=== PATIENT | female | born 2000 | race Caucasian/White ===

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

== ENCOUNTER 2018-03-22 14:25 | Emergency (ER) | payer MEDICAID ==
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
[2018-03-22 15:30] LABS: ABSOLUTE BASOPHILS # (AUTO) 0.1 10^3/uL (0.0-0.2); ABSOLUTE EOSINOPHILS # (AUTO) 0.3 10^3/uL (0.0-0.6); ABSOLUTE LYMPHOCYTES (AUTO) 1.2 10^3/uL (0.5-4.7); ABSOLUTE MONOCYTES (AUTO) 0.5 10^3/uL (0.1-1.4); ABSOLUTE NEUT (AUTO) 4.2 10^3/uL (1.7-8.2); BASOPHILS % (AUTO) 0.9 % (0-2); EOSINOPHILS % (AUTO) 4.5 % (0-6); HEMOGLOBIN 12.9 g/dL (12.0-15.5); LYMPHOCYTES % (AUTO) 18.8 % (13-45); MEAN CORPUSCULAR HEMOGLOBIN 32.1 pg (27.0-33.4); MEAN CORPUSCULAR HGB CONC 34.8 g/dL (32.0-36.0); MEAN CORPUSCULAR VOLUME 92 fl (80-97); MONOCYTES % (AUTO) 7.7 % (3-13); PLATELET COUNT 220 10^3/uL (150-450); RED BLOOD COUNT 4.01 10^6/uL (3.72-5.28); RED CELL DISTRIBUTION WIDTH 12.2 % (11.5-14.0); SEGMENTED NEUTROPHILS % (AUTO) 68.1 % (42-78); TOTAL CELLS COUNTED % (AUTO) 100 %; WHITE BLOOD COUNT 6.2 10^3/uL (4.0-10.5)
[2018-03-22 15:50] LABS: ALANINE AMINOTRANSFERASE 16 U/L (5-35); ALBUMIN 4.7 g/dL (3.7-5.6); ALKALINE PHOSPHATASE 55 U/L (50-135); ANION GAP 11 (5-19); ASPARTATE AMINO TRANSFERASE 19 U/L (5-30); BILIRUBIN,DIRECT 0.4 mg/dL (0.0-0.4); BILIRUBIN,TOTAL 0.7 mg/dL (0.2-1.3); BLOOD UREA NITROGEN 8 mg/dL (7-20); CALCIUM 9.8 mg/dL (8.4-10.2); CARBON DIOXIDE 22 mmol/L (22-30); CHLORIDE 107 mmol/L (98-107); GLUCOSE 91 mg/dL (75-110); POTASSIUM 4.2 mmol/L (3.6-5.0); TOTAL PROTEIN 7.9 g/dL (6.3-8.2)
[2018-03-22 15:51] LABS: ACETAMINOPHEN < 10 ug/mL (10-30); ALCOHOL < 10 mg/dL (NONE DETECTED); SALICYLATE < 1.0 mg/dL (2.0-20.0)
[2018-03-22] MEDS ORDERED: LIDOCAINE 1% INJ-PF (10 MG/ML) 30 ML SDV INJ ONE (17:13)
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
[2018-03-22] MEDS ORDERED: OLANZAPINE INJ/PF 10 MG SDV IM ONE (17:19)
[2018-03-22] MEDS ORDERED: BENZTROPINE MESYLATE INJ 2 MG/2 ML AMPULE IM ONE (17:20)
--- NOTE | 2018-03-22 19:38 | EKG REPORT ---
SEVERITY:- NORMAL ECG - SINUS RHYTHM : Confirmed by: Claudia Cline MD 22-Mar-2018 19:37:06
[2018-03-22 22:15] LABS: APPEARANCE,URINE SLIGHTLY-CLOUDY; BILIRUBIN,URINE NEGATIVE (NEGATIVE); COLOR,URINE YELLOW; GLUCOSE, URINE NEGATIVE (NEGATIVE); KETONES,URINE NEGATIVE (NEGATIVE); LEUKOCYTE ESTERASE,URINE NEGATIVE (NEGATIVE); NITRITE,URINE NEGATIVE (NEGATIVE); PROTEIN,URINE NEGATIVE (NEGATIVE); URINE SPECIFIC GRAVITY 1.013; UROBILINOGEN,URINE NEGATIVE mg/dL (<2.0)
[2018-03-22 22:27] LABS: URINE AMPHETAMINES SCREEN NEGATIVE; URINE BARBITURATES SCREEN NEGATIVE; URINE BENZODIAZEPINES SCREEN UNCONFIRMED POSITIVE; URINE COCAINE SCREEN UNCONFIRMED POSITIVE; URINE MARIJUANA (THC) SCREEN NEGATIVE; URINE METHADONE SCREEN NEGATIVE; URINE PHENCYCLIDINE SCREEN NEGATIVE
[2018-03-23 07:45] VITALS: BP 119/60
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
== END 2018-03-23 10:30 | disposition home or self-care (01) ==
LOC: ER 14:25
DX: R45.851 Suicidal ideations (principal); F14.10 Cocaine abuse, uncomplicated; F11.10 Opioid abuse, uncomplicated; F43.25 Adjustment disorder with mixed disturbance of emotions and conduct; F32.9 Major depressive disorder, single episode, unspecified; S61.412A Laceration without foreign body of left hand, initial encounter; X78.9XXA Intentional self-harm by unspecified sharp object, initial encounter; F17.210 Nicotine dependence, cigarettes, uncomplicated
CPT/HCPCS: 93005; 99285; 96372; 36415; 80307 ×4; 84703; 85025; 80053; 81001; 93010; J0515; J3490

== ENCOUNTER 2018-12-30 04:11 | Emergency (ER) | payer MEDICAID ==
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
--- NOTE | 2018-12-30 06:46 | RADIOLOGY REPORT (SQ) ---
EXAM DESCRIPTION: CT HEAD WITHOUT IV CONTRAST COMPLETED DATE/TME: 12/30/2018 05:34 CLINICAL HISTORY: 18 years Female, head injury, LOC, headache COMPARISON:Jun 29 2017 TECHNIQUE: No contrast. Coronal and sagittal reformat. This exam was performed according to our departmental dose-optimization program, which includes automated exposure control, adjustment of the mA and/or kV according to patient size and/or use of iterative reconstruction technique. FINDINGS: No hemorrhage or infarct. No mass, mass effect, or midline shift. Brain and extra-axial structures appear intact. IMPRESSION: Normal CT of the head.
--- NOTE | 2018-12-30 06:48 | RADIOLOGY REPORT (SQ) ---
EXAM DESCRIPTION: CT CERVICAL SPINE WITHOUT IV CONTRAST COMPLETED DATE/TME: 12/30/2018 05:34 CLINICAL HISTORY: 18 years Female, head injury, pain Comparison:Jun 29 2017 Technique: No contrast. Coronal and sagittal reformat. This exam was performed according to our departmental dose-optimization program, which includes automated exposure control, adjustment of the mA and/or kV according to patient size and/or use of iterative reconstruction technique.[facility]: Dose Right [facility]: CareDose [facility]: Dose Right [facility]: Teradose 4D [facility]: [email or web address] LIMITATIONS: None Findings: Normal alignment. Normal curvature. No fracture. Normal vertebral heights. Partially imaged nuchal soft tissues, inferior cranium, and upper thorax appear otherwise grossly intact. IMPRESSION: No acute findings.
[2018-12-30] MEDS ORDERED: KETOROLAC TROMETHAMINE INJ/PF 30 MG/1 ML SDV IV ONE (07:01)
[2018-12-30] MEDS ORDERED: ONDANSETRON ODT 4 MG TAB (6 TAB/ER DISP) PO PRN (07:01)
--- NOTE | 2018-12-30 07:07 | RADIOLOGY REPORT (SQ) ---
EXAM DESCRIPTION: XR ELBOW 3 VIEWS COMPLETED DATE/TME: 12/30/2018 05:34 CLINICAL HISTORY: 18 years Female, fall, pain, bruising COMPARISON: None. Findings: Bones, joints, and soft tissues of the RIGHT XR ELBOW 4 VIEWS appear intact. IMPRESSION: No acute findings.
[2018-12-30 07:53] VITALS: BP 115/71
== END 2018-12-30 08:04 | disposition home or self-care (01) ==
LOC: ER 04:11
DX: S09.90XA Unspecified injury of head, initial encounter (principal); S01.01XA Laceration without foreign body of scalp, initial encounter; S59.901A Unspecified injury of right elbow, initial encounter; Y00.XXXA Assault by blunt object, initial encounter
CPT/HCPCS: 99284; 96374; 73080; 70450; 72125; J1885

== ENCOUNTER 2019-06-24 11:42 | Inpatient (IN) | payer MEDICAID ==
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
[2019-06-24 12:39] LABS: APPEARANCE,URINE SLIGHTLY-CLOUDY; BILIRUBIN,URINE NEGATIVE (NEGATIVE); COLOR,URINE AMBER; GLUCOSE, URINE NEGATIVE (NEGATIVE); KETONES,URINE 80 mg/dL (NEGATIVE); LEUKOCYTE ESTERASE,URINE TRACE (NEGATIVE); NITRITE,URINE NEGATIVE (NEGATIVE); PROTEIN,URINE 100 mg/dL (NEGATIVE)
--- NOTE | 2019-06-24 12:50 | RADIOLOGY REPORT (SQ) ---
EXAM DESCRIPTION: HAND LEFT 3 VIEWS COMPLETED DATE/TIME: 06/24/2019 12:34 pm REASON FOR STUDY: hand pain swelling erythema COMPARISON: None. EXAM PARAMETERS: NUMBER OF VIEWS: Three views. TECHNIQUE: AP, lateral and oblique radiographic images acquired of the left hand. LIMITATIONS: None. FINDINGS: MINERALIZATION: Normal. BONES: No acute fracture or dislocation. No worrisome bone lesions. JOINTS: No effusion. SOFT TISSUES: No significant soft tissue swelling. No radiopaque foreign body. OTHER: No other significant finding. IMPRESSION: NO FRACTURE. TECHNICAL DOCUMENTATION: JOB ID: [id number] [place]-72 2010 [employer]- All Rights Reserved Reading location - IP/workstation name: [email or web address]
[2019-06-24] MEDS ORDERED: VANCOMYCIN HCL INJ 1000 MG VIAL IV ONE ×2 (12:56→16:00)
[2019-06-24] MEDS ORDERED: PIPERACILLIN/TAZOBACTAM 3.375 GM VIAL IV ONE (12:59)
[2019-06-24] MEDS ORDERED: NORMAL SALINE 1000 ML 1,000 ML IV ONE (13:07)
[2019-06-24] MEDS ORDERED: ACETAMINOPHEN 325 MG TABLET PO ONE (13:09)
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
[2019-06-24] MEDS ORDERED: ONDANSETRON 4 MG TAB.RAPDIS PO PRN (14:19)
[2019-06-24] MEDS ORDERED: MAG HYDROX/AL HYDROX/SIMETH SUSP 30 ML UDCUP PO PRN (14:19)
[2019-06-24 14:52] LABS: ABSOLUTE BASOPHILS # (AUTO) 0.1 10^3/uL (0.0-0.2); ABSOLUTE EOSINOPHILS # (AUTO) 0.1 10^3/uL (0.0-0.6); ABSOLUTE LYMPHOCYTES (AUTO) 1.7 10^3/uL (0.5-4.7); ABSOLUTE NEUT (AUTO) 12.9 10^3/uL (1.7-8.2); BASOPHILS % (AUTO) 0.4 % (0-2); EOSINOPHILS % (AUTO) 0.6 % (0-6); HEMOGLOBIN 13.1 g/dL (12.0-15.5); LYMPHOCYTES % (AUTO) 10.6 % (13-45); MEAN CORPUSCULAR HEMOGLOBIN 32.5 pg (27.0-33.4); MEAN CORPUSCULAR HGB CONC 34.4 g/dL (32.0-36.0); MEAN CORPUSCULAR VOLUME 95 fl (80-97); MONOCYTES % (AUTO) 6.5 % (3-13); PLATELET COUNT 244 10^3/uL (150-450); RED BLOOD COUNT 4.01 10^6/uL (3.72-5.28); SEGMENTED NEUTROPHILS % (AUTO) 81.9 % (42-78); TOTAL CELLS COUNTED % (AUTO) 100 %; WHITE BLOOD COUNT 15.7 10^3/uL (4.0-10.5)
[2019-06-24 14:55] LABS: ALBUMIN 4.9 g/dL (3.5-5.0); ALKALINE PHOSPHATASE 95 U/L (38-126); ANION GAP 15 (5-19); ASPARTATE AMINO TRANSFERASE 18 U/L (14-36); BILIRUBIN,DIRECT 0.2 mg/dL (0.0-0.4); BILIRUBIN,TOTAL 0.7 mg/dL (0.2-1.3); BLOOD UREA NITROGEN 16 mg/dL (7-20); CALCIUM 9.7 mg/dL (8.4-10.2); CARBON DIOXIDE 22 mmol/L (22-30); CHLORIDE 102 mmol/L (98-107); GLUCOSE 76 mg/dL (75-110); POTASSIUM 3.9 mmol/L (3.6-5.0); TOTAL PROTEIN 8.2 g/dL (6.3-8.2)
[2019-06-24] MEDS ORDERED: VANCOMYCIN HCL INJ 1000 MG VIAL ONE (15:52)
[2019-06-24] MEDS: ACETAMINOPHEN 325 MG TABLET PO SCH (17:51)
[2019-06-24] MEDS ORDERED: PIPERACILLIN/TAZOBACTAM 3.375 GM VIAL IV SCH (18:00)
[2019-06-24] MEDS: OXYCODONE-ACETAMINOPHEN 5-325 MG TABLET PO PRN (19:27)
[2019-06-24] MEDS ORDERED: NICOTINE 21 MG/24 HR PATCH.TD24 TD ONE (20:10)
[2019-06-24 20:17] LABS: URINE BARBITURATES SCREEN NEGATIVE; URINE COCAINE SCREEN NEGATIVE; URINE METHADONE SCREEN NEGATIVE; URINE PHENCYCLIDINE SCREEN NEGATIVE
[2019-06-24 21:30] LABS: URINE BENZODIAZEPINES SCREEN UNCONFIRMED POSITIVE; URINE MARIJUANA (THC) SCREEN UNCONFIRMED POSITIVE
[2019-06-24] MEDS: PIPERACILLIN SODIUM/TAZOBACTAM 3.375 GM in NORMAL SALINE 100 ML IV SCH (21:42)
[2019-06-24] MEDS ORDERED: VANCOMYCIN HCL INJ 1000 MG VIAL IV SCH (22:00)
[2019-06-24] MEDS ORDERED: VANCOMYCIN HCL INJ 1000 MG VIAL IV PRN (22:05)
[2019-06-25] MEDS: OXYCODONE-ACETAMINOPHEN 5-325 MG TABLET PO PRN ×3 (00:16→10:55)
[2019-06-25] MEDS: ACETAMINOPHEN 325 MG TABLET PO SCH ×4 (00:16→18:29)
[2019-06-25] MEDS: PIPERACILLIN SODIUM/TAZOBACTAM 3.375 GM in NORMAL SALINE 100 ML IV SCH ×4 (04:04→21:09)
[2019-06-25] MEDS ORDERED: VANCOMYCIN HCL 1,250 MG in DEXTROSE 5%-WATER 250 ML IV ONE (06:00)
[2019-06-25 06:12] LABS: ABSOLUTE EOSINOPHILS # (AUTO) 0.2 10^3/uL (0.0-0.6); ABSOLUTE LYMPHOCYTES (AUTO) 1.8 10^3/uL (0.5-4.7); ABSOLUTE MONOCYTES (AUTO) 0.7 10^3/uL (0.1-1.4); BASOPHILS % (AUTO) 0.5 % (0-2); EOSINOPHILS % (AUTO) 2.8 % (0-6); HEMATOCRIT 32.9 % (36.0-47.0); HEMOGLOBIN 11.4 g/dL (12.0-15.5); MEAN CORPUSCULAR HGB CONC 34.5 g/dL (32.0-36.0); MEAN CORPUSCULAR VOLUME 96 fl (80-97); MONOCYTES % (AUTO) 7.9 % (3-13); PLATELET COUNT 204 10^3/uL (150-450); RED BLOOD COUNT 3.45 10^6/uL (3.72-5.28); SEGMENTED NEUTROPHILS % (AUTO) 68.8 % (42-78); TOTAL CELLS COUNTED % (AUTO) 100 %; WHITE BLOOD COUNT 8.8 10^3/uL (4.0-10.5)
[2019-06-25 06:19] LABS: ANION GAP 13 (5-19); BLOOD UREA NITROGEN 14 mg/dL (7-20); CALCIUM 8.5 mg/dL (8.4-10.2); CARBON DIOXIDE 20 mmol/L (22-30); CHLORIDE 105 mmol/L (98-107); GLUCOSE 82 mg/dL (75-110); POTASSIUM 3.9 mmol/L (3.6-5.0)
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
[2019-06-25] MEDS: VANCOMYCIN HCL 1,000 MG in DEXTROSE 5%-WATER 250 ML IV SCH ×2 (10:34→22:34)
--- NOTE | 2019-06-25 12:51 | PDOC PROGRESS REPORT ---
Subjective Progress Note for:: 06/25/19 Subjective:: The patient is doing much better this morning. She does report improved pain and decreased swelling. She also feels that her antibiotics are making her overall feel better Reason For Visit: FLEXOR TENOSYNOVITIS Physical Exam Vital Signs: Temp Pulse Resp BP Pulse Ox 97.9 F 78 16 89/43 L 99 06/25/19 08:00 06/25/19 08:00 06/25/19 08:00 06/25/19 08:00 06/25/19 08:00 Intake & Output 06/24/19 06/25/19 06/26/19 06:59 06:59 06:59 Intake Total 1200 350 Balance 1200 350 Weight 51.5 kg Physical Exam: General appearance: PRESENT: no acute distress, cooperative, well-nourished Head exam: PRESENT: atraumatic, normocephalic Eye exam: PRESENT: EOMI Ear exam: PRESENT: normal external ear exam Mouth exam: PRESENT: neck supple Neck exam: ABSENT: tracheal deviation Respiratory exam: PRESENT: symmetrical, unlabored. ABSENT: accessory muscle use, wheezes Pulses: PRESENT: normal radial pulses, normal dorsalis pedis pulse Vascular exam: PRESENT: normal capillary refill GI/Abdominal exam: ABSENT: distended, firm Extremities exam: PRESENT: full ROM of bilateral shoulders, elbows wrists, knees, hips and ankles without pain Musculoskeletal exam: PRESENT: full ROM, normal inspection of all 4 extremities aside from that noted below. Neurological exam: PRESENT: alert, awake, oriented to person, oriented to place, oriented to time Psychiatric exam: PRESENT: appropriate affect. ABSENT: agitated Focused psych exam: ABSENT: catatonic Skin exam: PRESENT: intact. ABSENT: dry All as above aside from that noted in the HPI and the following: Right upper extremity sensation grossly intact to radial median and ulnar nerve. Right upper extremity motor function grossly intact to radian median ulnar nerve AIN and PIN Pulses 2+, capillary refill less than 2 seconds No deformity noted full range of motion of the elbow shoulder wrist and fingers without pain Compartments soft The marked out portion of her forearm does demonstrate receded erythema. -Swelling is slightly decreased and the purulent blister over her finger is more well-defined. Much improvement since yesterday Results Laboratory Results: 06/25/19 05:11 06/25/19 05:11 06/24/19 06/24/19 06/24/19 12:15 14:00 14:00 WBC 15.7 H RBC 4.01 Hgb 13.1 Hct 38.0 MCV 95 MCH 32.5 MCHC 34.4 RDW 12.0 Plt Count 244 Seg Neutrophils % 81.9 H Sodium 139.2 Potassium 3.9 Chloride 102 Carbon Dioxide 22 Anion Gap 15 BUN 16 Creatinine 0.57 Est GFR ( Amer) > 60 Glucose 76 Lactic Acid Calcium 9.7 Total Bilirubin 0.7 AST 18 Alkaline Phosphatase 95 Total Protein 8.2 Albumin 4.9 Urine Color CHRISTY Urine Appearance SLIGHTLY-CLOUDY Urine pH 5.0 Ur Specific [place] 1.030 Urine Protein 100 H Urine Glucose (UA) NEGATIVE Urine Ketones 80 H Urine Blood NEGATIVE Urine Nitrite NEGATIVE Ur Leukocyte Esterase TRACE H Urine WBC (Auto) 8 Urine RBC (Auto) 1 06/24/19 06/25/19 06/25/19 14:34 05:11 05:11 WBC 8.8 RBC 3.45 L Hgb 11.4 L Hct 32.9 L MCV 96 MCH 33.0 MCHC 34.5 RDW 12.0 Plt Count 204 Seg Neutrophils % 68.8 Sodium 137.7 Potassium 3.9 Chloride 105 Carbon Dioxide 20 L Anion Gap 13 BUN 14 Creatinine 0.50 L Est GFR ( Amer) > 60 Glucose 82 Lactic Acid 0.6 L Calcium 8.5 Total Bilirubin AST Alkaline Phosphatase Total Protein Albumin Urine Color Urine Appearance Urine pH Ur Specific [place] Urine Protein Urine Glucose (UA) Urine Ketones Urine Blood Urine Nitrite Ur Leukocyte Esterase Urine WBC (Auto) Urine RBC (Auto) Impressions: Hand X-Ray 06/24/19 12:02 IMPRESSION: NO FRACTURE. Assessment & Plan - Diagnosis (1) Infection of left hand Is this a current diagnosis for this admission?: Yes Plan: She is much improved from the antibiotics overnight. We will continue to follow and potentially be able to avoid surgery. She is to be n.p.o. again tonight for further potential planning for tomorrow (2) Substance abuse Is this a current diagnosis for this admission?: Yes Plan: She does have a history of polysubstance abuse and birch positive today for multiple drugs on her UDS screen. Psychiatric's have been consulted - Time Time Spent with patient: Less than 15 minutes
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
[2019-06-25] MEDS: NICOTINE 21 MG/24 HR PATCH.TD24 TD SCH (22:35)
[2019-06-26] MEDS: ACETAMINOPHEN 325 MG TABLET PO SCH ×5 (00:45→23:48)
[2019-06-26] MEDS: PIPERACILLIN SODIUM/TAZOBACTAM 3.375 GM in NORMAL SALINE 100 ML IV SCH ×4 (03:23→22:21)
--- NOTE | 2019-06-26 09:18 | PDOC PROGRESS REPORT ---
Subjective Progress Note for:: 06/26/19 Subjective:: She is doing well this morning. She reports increased movement in her fingers and ultimately feels that she is improved. Reason For Visit: FLEXOR TENOSYNOVITIS Physical Exam Vital Signs: Temp Pulse Resp BP Pulse Ox 98.3 F 78 14 106/48 L 99 06/26/19 08:00 06/26/19 08:00 06/26/19 08:00 06/26/19 08:00 06/26/19 08:00 Intake & Output 06/25/19 06/26/19 06/27/19 06:59 06:59 06:59 Intake Total 1200 1416 Balance 1200 1416 Weight 51.5 kg 51.4 kg Physical Exam: No change in prior physical exam aside from decreased swelling in the left upper extremity as well as the long finger. Erythema has continued to recede since yesterday. There is still a central focus over the PIP of the index finger with swelling and erythema. She reports that it has been draining since she has been doing the soaks Results Laboratory Results: 06/25/19 05:11 06/25/19 05:11 Impressions: Hand X-Ray 06/24/19 12:02 IMPRESSION: NO FRACTURE. Assessment & Plan - Diagnosis (1) Infection of left hand Is this a current diagnosis for this admission?: Yes Plan: Continue current antibiotic regiment. -This looks like is continuing to improve and may resolve with continued IV antibiotics however the central nidus at the PIP is concerning and I will plan to perform a bedside I&D today to facilitate improvement. -She can eat today as we will put her on the schedule for tomorrow for operative I&D if there is no improvement after her bedside I&D today. (2) Substance abuse Is this a current diagnosis for this admission?: Yes Plan: She was seen by psychiatrics yesterday and is amenable to treatment. - Time Time Spent with patient: Less than 15 minutes
[2019-06-26] MEDS ORDERED: LIDOCAINE 2% INJ-PF (100 MG/5 ML) SYRINGE ONE (11:02)
[2019-06-26] MEDS: VANCOMYCIN HCL 1,000 MG in DEXTROSE 5%-WATER 250 ML IV SCH ×2 (12:10→22:22)
--- NOTE | 2019-06-26 12:10 | Operative Report ---
Operative Report DATE OF SURGERY: 06/26/19 PREOPERATIVE DIAGNOSIS: Left index finger infection POSTOPERATIVE DIAGNOSIS: Left index finger infection OPERATION: Left index finger incision and debridement SURGEON: VIOLETTA ATKINS JR ANESTHESIA: Local TISSUE REMOVED OR ALTERED: Wound culture obtained and sent. COMPLICATIONS: None ESTIMATED BLOOD LOSS: Minimal PROCEDURE: The patient has had an ongoing left index finger infection that initially presented with tracking up the forearm. After 2 days of IV antibiotics if this has regressed considerably however it is now still focally located at the PIP of the left index finger. There is a purulent pocket of fluid over the PIP with a central area of necrosis, this could potentially represent a spider bite that has gotten infected. Though she has seen considerable improvement this focal area does not seem to have regressed and she still has diffuse swelling and pa in. We discussed the risks and benefits of incision and drainage and the patient and her mother who is with her at bedside had all questions answered before providing operative informed consent. The left hand was prepped and draped in sterile fashion. 5 cc of 2% lidocaine were applied both to the dorsal MCP joint as well as volarly at the palmar branch. After adequate analgesia an incision was made over the area of purulence. Cultures were taken upon drainage. The superficial necrotic skin was unroofed and the central area of necrosis was debrided. This was also inspected and found not to appreciably track down to the joint. However full inspection was difficult as the patient was somewhat anxious and tearful and was a limiting factor in the extent of the procedure. After a thorough debridement the wound was then irrigated with Betadine solution followed by sterile saline. A Xeroform dressing was placed followed by a 4 x 4 and then a Josh. She tolerated the procedure well without complication
[2019-06-26] MEDS: NICOTINE 21 MG/24 HR PATCH.TD24 TD SCH (22:21)
[2019-06-27] MEDS: PIPERACILLIN SODIUM/TAZOBACTAM 3.375 GM in NORMAL SALINE 100 ML IV SCH ×4 (03:07→21:29)
[2019-06-27] MEDS: ACETAMINOPHEN 325 MG TABLET PO SCH ×4 (06:02→23:49)
--- NOTE | 2019-06-27 08:19 | PDOC PROGRESS REPORT ---
Subjective Progress Note for:: 06/27/19 Subjective:: The patient continues to feel improvement today. She is moving her finger more than she has been. She has no new events or symptoms overnight. Reason For Visit: FLEXOR TENOSYNOVITIS Physical Exam Vital Signs: Temp Pulse Resp BP Pulse Ox 97.9 F 75 16 107/60 100 06/26/19 23:24 06/26/19 23:24 06/26/19 23:24 06/26/19 23:24 06/26/19 23:24 Intake & Output 06/26/19 06/27/19 06/28/19 06:59 06:59 06:59 Intake Total 1416 1140 Balance 1416 1140 Weight 51.4 kg Physical Exam: General appearance: PRESENT: no acute distress, cooperative, well-nourished Head exam: PRESENT: atraumatic, normocephalic Eye exam: PRESENT: EOMI Ear exam: PRESENT: normal external ear exam Mouth exam: PRESENT: neck supple Neck exam: ABSENT: tracheal deviation Respiratory exam: PRESENT: symmetrical, unlabored. ABSENT: accessory muscle use, wheezes Pulses: PRESENT: normal radial pulses, normal dorsalis pedis pulse Vascular exam: PRESENT: normal capillary refill GI/Abdominal exam: ABSENT: distended, firm Extremities exam: PRESENT: full ROM of bilateral shoulders, elbows wrists, knees, hips and ankles without pain Musculoskeletal exam: PRESENT: full ROM, normal inspection of all 4 extremities aside from that noted below. Neurological exam: PRESENT: alert, awake, oriented to person, oriented to place, oriented to time Psychiatric exam: PRESENT: appropriate affect. ABSENT: agitated Focused psych exam: ABSENT: catatonic Skin exam: PRESENT: intact. ABSENT: dry All as above aside from that noted in the HPI and the following: Right upper extremity sensation grossly intact to radial median and ulnar nerve. Right upper extremity motor function grossly intact to radian median ulnar nerve AIN and PIN Pulses 2+, capillary refill less than 2 seconds No deformity noted full range of motion of the elbow shoulder wrist and fingers without pain Compartments soft The marked out portion of her forearm does demonstrate receded erythema. -Swelling greatly decreased over initial exam. There is now only erythema surrounding the skin over the PIP joint of the left index finger. There appears to be considerable improvement since her I&D yesterday as well. She is moving her finger more freely with less pain. Results Laboratory Results: 06/25/19 05:11 06/25/19 05:11 Impressions: Hand X-Ray 06/24/19 12:02 IMPRESSION: NO FRACTURE. Assessment & Plan - Diagnosis (1) Infection of left hand Is this a current diagnosis for this admission?: Yes Plan: At this time her wound continues to appear improved. We will continue current antibiotics pending cultures. She can return to a normal diet. We will reevaluate tomorrow for potential need of operative intervention, which is unlikely at this point. -Warm dilute Dakin's solution soaks every 2-3 hours today. (2) Substance abuse Is this a current diagnosis for this admission?: Yes - Time Time Spent with patient: Less than 15 minutes
[2019-06-27] MEDS: SODIUM HYPOCHLORITE 0.25% SOLN 473 ML BOTTLE TP SCH ×4 (09:42→18:15)
[2019-06-27 10:06] LABS: VANCOMYCIN,TROUGH 6.7 ug/mL (5.0-20.0)
[2019-06-27] MEDS: VANCOMYCIN HCL 1,000 MG in DEXTROSE 5%-WATER 250 ML IV SCH ×2 (10:32→18:11)
[2019-06-27] MEDS: NICOTINE 21 MG/24 HR PATCH.TD24 TD SCH (21:36)
[2019-06-28] MEDS: VANCOMYCIN HCL 1,000 MG in DEXTROSE 5%-WATER 250 ML IV SCH ×3 (02:00→18:33)
[2019-06-28] MEDS: PIPERACILLIN SODIUM/TAZOBACTAM 3.375 GM in NORMAL SALINE 100 ML IV SCH ×4 (04:21→21:04)
[2019-06-28] MEDS: ACETAMINOPHEN 325 MG TABLET PO SCH ×3 (05:10→18:33)
--- NOTE | 2019-06-28 07:52 | EKG REPORT ---
SEVERITY:- NORMAL ECG - SINUS RHYTHM : Confirmed by: Best Li MD 28-Jun-2019 07:51:51
--- NOTE | 2019-06-28 08:41 | PDOC PROGRESS REPORT ---
Subjective Progress Note for:: 06/28/19 Subjective:: She reports continued improvement this morning. Also reported some chest tightness overnight. This has improved this morning. She has had no further complaints. Due to her history of heart murmur we did get an EKG and consult hospitalist. Additionally she refused her morning Zosyn because she wanted to sleep. Reason For Visit: FLEXOR TENOSYNOVITIS Physical Exam Vital Signs: Temp Pulse Resp BP Pulse Ox 99.1 F 96 17 114/54 L 98 06/28/19 00:19 06/28/19 00:19 06/28/19 00:19 06/28/19 00:19 06/28/19 00:19 Intake & Output 06/27/19 06/28/19 06/29/19 06:59 06:59 06:59 Intake Total 1140 2170 Output Total 0 Balance 1140 2170 Weight 52 kg Physical Exam: General appearance: PRESENT: no acute distress, cooperative, well-nourished Head exam: PRESENT: atraumatic, normocephalic Eye exam: PRESENT: EOMI Ear exam: PRESENT: normal external ear exam Mouth exam: PRESENT: neck supple Neck exam: ABSENT: tracheal deviation Respiratory exam: PRESENT: symmetrical, unlabored. ABSENT: accessory muscle use, wheezes Pulses: PRESENT: normal radial pulses, normal dorsalis pedis pulse Vascular exam: PRESENT: normal capillary refill GI/Abdominal exam: ABSENT: distended, firm Extremities exam: PRESENT: full ROM of bilateral shoulders, elbows wrists, knees, hips and ankles without pain Musculoskeletal exam: PRESENT: full ROM, normal inspection of all 4 extremities aside from that noted below. Neurological exam: PRESENT: alert, awake, oriented to person, oriented to place, oriented to time Psychiatric exam: PRESENT: appropriate affect. ABSENT: agitated Focused psych exam: ABSENT: catatonic Skin exam: PRESENT: intact. ABSENT: dry All as above aside from that noted in the HPI and the following: Right upper extremity sensation grossly intact to radial median and ulnar nerve. Right upper extremity motor function grossly intact to radian median ulnar nerve AIN and PIN Pulses 2+, capillary refill less than 2 seconds No deformity noted full range of motion of the elbow shoulder wrist and fingers without pain Compartments soft The marked out portion of her forearm does demonstrate receded erythema. While she has had some improvement since her initial presentation there is maintained erythema and swelling over the PIP of the left index finger that has not improved overnight. There is some palpable swelling and potential fluctuance. She still has difficulty with range of motion of the PIP joint. There is no active draining. Results Laboratory Results: 06/25/19 05:11 06/27/19 09:27 06/27/19 09:27 Creatinine 0.49 L Est GFR ( Amer) > 60 Impressions: Hand X-Ray 06/24/19 12:02 IMPRESSION: NO FRACTURE. Assessment & Plan - Diagnosis (1) Infection of left hand Is this a current diagnosis for this admission?: Yes Plan: While she continues to improve this is not progressing as hoped. Antibiotics alone may not be able to treat her infection and there is some concern that there is an intra-articular component. We will proceed with I&D of the left index finger today. -Cultures with definitive sensitivities are pending. Currently growing group A strep -ID consult pending (2) Substance abuse Is this a current diagnosis for this admission?: Yes (3) Chest pain Is this a current diagnosis for this admission?: Yes Plan: EKG reviewed and is read as normal this morning. Additionally hospitalist consult was pending however the problem may have resolved but the patient has no further complaints at this time. Patient was reporting more tightness then pain and it seemed to be transient. - Time Time Spent with patient: 15-24 minutes
[2019-06-28] MEDS: SODIUM HYPOCHLORITE 0.25% SOLN 473 ML BOTTLE TP SCH ×4 (09:31→18:31)
--- NOTE | 2019-06-28 10:03 | RADIOLOGY REPORT (SQ) ---
EXAM DESCRIPTION: CHEST SINGLE VIEW COMPLETED DATE/TIME: 06/28/2019 9:44 am REASON FOR STUDY: chest pain COMPARISON: None. NUMBER OF VIEWS: One view. TECHNIQUE: Single frontal radiographic view of the chest acquired. LIMITATIONS: None. FINDINGS: LUNGS AND PLEURA: No opacities, masses or pneumothorax. No pleural effusion. MEDIASTINUM AND HILAR STRUCTURES: No masses. Contour normal. HEART AND VASCULAR STRUCTURES: Heart normal in size. Normal vasculature. BONES: No acute findings. HARDWARE: None in the chest. OTHER: No other significant finding. IMPRESSION: NO SIGNIFICANT RADIOGRAPHIC FINDING IN THE CHEST. TECHNICAL DOCUMENTATION: JOB ID: [id number] [employer]- All Rights Reserved Reading location - IP/workstation name: [email or web address]
[2019-06-28] MEDS ORDERED: FENTANYL CITRATE INJ/PF 100 MCG/2 ML AMPUL ONE ×2 (10:20→12:30)
[2019-06-28] MEDS ORDERED: MIDAZOLAM 2 MG/2 ML INJ ONE (10:21)
[2019-06-28] MEDS ORDERED: DEXAMETHASONE SOD PHOSPHATE INJ 4 MG/1 ML VIAL ONE (10:21)
[2019-06-28] MEDS ORDERED: ONDANSETRON HCL INJ/PF 4 MG/2 ML SDV ONE (10:21)
[2019-06-28] MEDS ORDERED: PROPOFOL INJ 200 MG/20 ML VIAL IV ONE (10:22)
[2019-06-28 10:48] LABS: VANCOMYCIN,TROUGH 5.2 ug/mL (5.0-20.0)
[2019-06-28] MEDS ORDERED: METOCLOPRAMIDE HCL INJ/PF 10 MG/2 ML SDV ONE (10:58)
[2019-06-28] MEDS ORDERED: FAMOTIDINE INJ/PF 20 MG/2 ML SDV IV ONE (10:58)
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
[2019-06-28] MEDS ORDERED: LIDOCAINE 2% INJ (20 MG/ML) 20 ML MDV ONE (11:27)
[2019-06-28] MEDS ORDERED: LIDOCAINE 2% INJ (20 MG/ML) 20 ML MDV INJ ONE (11:38)
[2019-06-28] MEDS ORDERED: PROMETHAZINE HCL INJ 25 MG/1 ML VIAL IV PRN (11:43)
[2019-06-28] MEDS ORDERED: MEPERIDINE HCL/PF INJ 25 MG/1 ML DISP.SYRIN IV PRN (11:43)
[2019-06-28] MEDS ORDERED: FENTANYL CITRATE INJ/PF 100 MCG/2 ML AMPUL IV PRN ×2 (11:43)
[2019-06-28] MEDS ORDERED: DIPHENHYDRAMINE HCL 50 MG/ML VIAL IV PRN (11:43)
--- NOTE | 2019-06-28 12:07 | Operative Report ---
Operative Report DATE OF SURGERY: 06/28/19 PREOPERATIVE DIAGNOSIS: Left index finger abscess POSTOPERATIVE DIAGNOSIS: Left index finger abscess OPERATION: Left index finger incision and drainage SURGEON: VIOLETTA ATKINS JR ANESTHESIA: GA TISSUE REMOVED OR ALTERED: 1 wound cultures taken COMPLICATIONS: None ESTIMATED BLOOD LOSS: Minimal PROCEDURE: Is a 18-year-old female who has had a left first index finger infection initially presented on Tuesday of this week. Since that time she has been on IV antibiotics with a can considerable improvement in the erythema that was present up to the forearm. However this is all receded to a central nidus over the PIP of the left first digit with an abscess that was subcutaneous. This abscess was drained at bedside 2 days ago and she continued to have improvement, but the I&D at that time was limited due to patient compliance and the improvement was not as much as would be expected. So the decision was made to proceed with intervention today in the operating room. The patient was brought to the operating room and placed supine on operating table. She has vancomycin and Zosyn that have been given continuously since her admission. The left upper extremity was prepped and draped in standard sterile fashion. An appropriate timeout was performed and the site was marked. The upper extremity was placed under tourniquet and an incision was made over the dorsal PIP joint. A black necrotic eschar was present preoperatively on the radial aspect of the PIP and the incision was made about this portion of the wound to include excision of the necrotic superficial layer. Upon deep exposure, just superficial to the joint capsule, tristan purulence was encountered with fibrinous abscess material. This was then taken for culture. The joint was thoroughly debrided removing all potential or infected appearing tissue. This was done with both blunt instruments as well as Ray-Leticia's. After thorough debridement the joint capsule was explored and there was no notable insult or indication that the infection proceeded into the articular portion of the joint. We then thoroughly irrigated the wound with dilute Betadine solution. The wound was lightly closed in a interrupted fashion with 3-0 nylon sutures to allow for continued draining. A sterile dressing was then placed. The patient was awakened from anesthesia in stable condition.
[2019-06-28] MEDS ORDERED: ACETAMINOPHEN 1,000 MG/100 ML RTUPB IV ONE (12:19)
[2019-06-28] MEDS ORDERED: KETOROLAC TROMETHAMINE INJ/PF 30 MG/1 ML SDV ONE (12:19)
[2019-06-28] MEDS: FENTANYL CITRATE INJ/PF 100 MCG/2 ML AMPUL IV PRN ×2 (12:31→12:55)
[2019-06-28 14:51] LABS: ABSOLUTE LYMPHOCYTES (AUTO) 0.6 10^3/uL (0.5-4.7); ABSOLUTE MONOCYTES (AUTO) 0.1 10^3/uL (0.1-1.4); ABSOLUTE NEUT (AUTO) 3.8 10^3/uL (1.7-8.2); BASOPHILS % (AUTO) 0.9 % (0-2); EOSINOPHILS % (AUTO) 0.5 % (0-6); HEMATOCRIT 34.2 % (36.0-47.0); HEMOGLOBIN 12.1 g/dL (12.0-15.5); MEAN CORPUSCULAR HEMOGLOBIN 33.4 pg (27.0-33.4); MEAN CORPUSCULAR HGB CONC 35.4 g/dL (32.0-36.0); MEAN CORPUSCULAR VOLUME 94 fl (80-97); MONOCYTES % (AUTO) 2.3 % (3-13); PLATELET COUNT 218 10^3/uL (150-450); RED BLOOD COUNT 3.62 10^6/uL (3.72-5.28); RED CELL DISTRIBUTION WIDTH 11.7 % (11.5-14.0); SEGMENTED NEUTROPHILS % (AUTO) 83.3 % (42-78); TOTAL CELLS COUNTED % (AUTO) 100 %; WHITE BLOOD COUNT 4.6 10^3/uL (4.0-10.5)
[2019-06-28] MEDS: NICOTINE 21 MG/24 HR PATCH.TD24 TD SCH (21:10)
--- NOTE | 2019-06-29 00:17 | Progress Note ---
Provider Note Provider Note: [facility] Telephone Advice Chart reviewed. Patient is a 18-year-old female with a history of substance abuse in the past, anxiety, depression who was admitted on 06/24/19 due to left index finger pain, redness and swelling. Patient can't recall leslie this happened, but apparently she injured her finger while playing outside. This happened 2-3 days prior to admission. On admission, she had leukocytosis and erythema extended to her arm. She was evaluated by ortho who performed a bedside I&D on 06/26 and cultures were positive for Streptococcus pyogenes (GAS). Her blood cultures from 06/24 are negative. On 06/28/19 she was taken to the OR for better source control. Per surgeon's note, this was a subcutaneous abscess in the PIP of the left index finger. There was significant purulence in the subcutaneous tissue, but the purulence didn't penetrate the joint. She has been on Vancomycin and Zosyn. She is afebrile and stable, leukocytosis improved. ID consulted for oral antibiotic alternatives. PMH: Anxiety Substance abuse PSH: None Allergies: No Known Allergies Allergy (Verified 06/24/19 11:51) Medications: No Home Medications 06/24/19 Vital Signs: Temp Pulse Resp BP Pulse Ox 98.4 F 79 16 110/58 L 98 06/28/19 16:00 06/28/19 16:00 06/28/19 16:00 06/28/19 16:00 06/28/19 16:00 Intake & Output 06/27/19 06/28/19 06/29/19 06:59 06:59 06:59 Intake Total 1140 2170 1050 Output Total 0 Balance 1140 2170 1050 Weight 52 kg Weight/Height Weight 52 kg Height 5 ft 3 in Laboratories: 06/28/19 14:33 06/28/19 06:45 MCV 94 fl (80-97) 06/28/19 14:33 MCH 33.4 pg (27.0-33.4) 06/28/19 14:33 MCHC 35.4 g/dL (32.0-36.0) 06/28/19 14:33 RDW 11.7 % (11.5-14.0) 06/28/19 14:33 Seg Neutrophils % 83.3 % (42-78) H 06/28/19 14:33 Chloride 105 mmol/L (98-107) 06/25/19 05:11 Carbon Dioxide 20 mmol/L (22-30) L 06/25/19 05:11 Anion Gap 13 (5-19) 06/25/19 05:11 Est GFR ( Amer) > 60 (>60) 06/28/19 06:45 Glucose 82 mg/dL (75-110) 06/25/19 05:11 Lactic Acid 0.6 mmol/L (0.7-2.1) L 06/24/19 14:34 Calcium 8.5 mg/dL (8.4-10.2) 06/25/19 05:11 Total Bilirubin 0.7 mg/dL (0.2-1.3) 06/24/19 14:00 AST 18 U/L (14-36) 06/24/19 14:00 Alkaline Phosphatase 95 U/L (38-126) 06/24/19 14:00 Total Protein 8.2 g/dL (6.3-8.2) 06/24/19 14:00 Albumin 4.9 g/dL (3.5-5.0) 06/24/19 14:00 Urine Color CHRISTY 06/24/19 12:15 Urine Appearance SLIGHTLY-CLOUDY 06/24/19 12:15 Urine pH 5.0 (5.0-9.0) 06/24/19 12:15 Ur Specific [place] 1.030 06/24/19 12:15 Urine Protein 100 mg/dL (NEGATIVE) H 06/24/19 12:15 Urine Glucose (UA) NEGATIVE mg/dL (NEGATIVE) 06/24/19 12:15 Urine Ketones 80 mg/dL (NEGATIVE) H 06/24/19 12:15 Urine Blood NEGATIVE (NEGATIVE) 06/24/19 12:15 Urine Nitrite NEGATIVE (NEGATIVE) 06/24/19 12:15 Ur Leukocyte Esterase TRACE (NEGATIVE) H 06/24/19 12:15 Urine WBC (Auto) 8 /HPF 06/24/19 12:15 Urine RBC (Auto) 1 /HPF 06/24/19 12:15 06/26/19 11:40 Hand - Abscess Gram Stain - Final Microbiology: Blood cultures: 06/24/19 Negative to date Wound Culture: 06/26/19 Streptococcus pyogenes 1/2/20 In process - 4 + [facility] Radiology: Hand X-Ray 06/24/19 12:02 IMPRESSION: NO FRACTURE. Chest X-Ray 06/28/19 00:00 IMPRESSION: NO SIGNIFICANT RADIOGRAPHIC FINDING IN THE CHEST. Assessment and Recommendations: Patient evaluated due to abscess in the left index finger due to Streptococcus pyogenes. Portal of entry more likely trauma to the finger. patient may be a carrier of this bacteria in her throat and this might have increased the risk of infection. This bacteria can cause severe infection with lymphangitis, necrot izing infection, toxic shock syndrome due to toxin production in the setting of bacteremia. Her blood cultures remain negative, therefore will treat for local infection. No joint involvement per surgeon's note, therefore 2 weeks of antibiotics should suffice now that she had adequate source control with extensive I&D. She has received 3 days of IV antibiotics and has had good source control. Considering her history of substance abuse, it will represent a risk to send her home with a PICC line for IV antibiotics. For that reason, will recommend highly bioavailable agents as linezolid or amoxicillin x 2 weeks from the day of the surgery. If linezolid chosen, it is 600 mg po bid. Should avoid SSRIs as it can increase the risk of serotonin syndrome. Nausea and GI upset is the most common adverse effect of this drug, together with marrow suppression if used > 2 weeks. An alternative would be amoxicillin 1g po TID. Most common adverse effect is diarrhea, and should warn about the risk of C diff infection and to notify her physician if she develops diarrhea. EOT will be 07/12/2019. Please call if any questions. Eleanor Walker MD [facility] [phone]
[2019-06-29] MEDS: VANCOMYCIN HCL 1,000 MG in DEXTROSE 5%-WATER 250 ML IV SCH ×2 (00:58→05:38)
[2019-06-29] MEDS: ACETAMINOPHEN 325 MG TABLET PO SCH ×2 (00:59→05:38)
[2019-06-29] MEDS: PIPERACILLIN SODIUM/TAZOBACTAM 3.375 GM in NORMAL SALINE 100 ML IV SCH (02:56)
[2019-06-29 06:49] LABS: VANCOMYCIN,TROUGH 10.5 ug/mL (5.0-20.0)
[2019-06-29 08:25] VITALS: BP 110/58
--- NOTE | 2019-06-29 09:12 | PDOC PROGRESS REPORT ---
Subjective Progress Note for:: 06/29/19 Subjective:: The patient was seen and examined this AM. No acute events overnight, no further chest pain. She did have some pain following surgery that is well controlled on current medications. Reason For Visit: FLEXOR TENOSYNOVITIS Physical Exam Vital Signs: Temp Pulse Resp BP Pulse Ox 98.5 F 73 16 110/58 L 99 06/29/19 08:18 06/29/19 08:18 06/29/19 08:18 06/29/19 08:18 06/29/19 08:18 Intake & Output 06/28/19 06/29/19 06/30/19 06:59 06:59 06:59 Intake Total 2170 1880 Output Total 0 Balance 2170 1880 Weight 52 kg Physical Exam: Right upper extremity sensation grossly intact to radial median and ulnar nerve. Right upper extremity motor function grossly intact to radian median ulnar nerve AIN and PIN Pulses 2+, capillary refill less than 2 seconds No deformity noted full range of motion of the elbow shoulder wrist and fingers without pain Compartments soft Erythema now nearly resolved Dressing C/D/I Results Laboratory Results: 06/28/19 14:33 06/29/19 05:36 06/28/19 06/28/19 06/29/19 06:45 14:33 05:36 WBC 4.6 RBC 3.62 L Hgb 12.1 Hct 34.2 L MCV 94 MCH 33.4 MCHC 35.4 RDW 11.7 Plt Count 218 Seg Neutrophils % 83.3 H Creatinine 0.50 L 0.53 Est GFR ( Amer) > 60 > 60 06/26/19 11:40 Hand - Abscess Gram Stain - Final 06/26/19 11:40 Hand - Abscess Wound Culture - Final Group A Beta Streptococcus No Anaerobic Organisms Impressions: Hand X-Ray 06/24/19 12:02 IMPRESSION: NO FRACTURE. Chest X-Ray 06/28/19 00:00 IMPRESSION: NO SIGNIFICANT RADIOGRAPHIC FINDING IN THE CHEST. Assessment & Plan - Diagnosis (1) Infection of left hand Is this a current diagnosis for this admission?: Yes Plan: - ID reviewed chart and made recommendation - Patient prescribed 2 weeks of amoxicillin as recommended. - She will follow in two weeks for further evaluation - Change the dressing in 2-3 days, may soak in the intervals with dilute betadyne or dakins solution - She does not need to consider obtaining full motion at this time, wound was left partially open and will heal better in extension, we will re-evaluate in 2 weeks and proceed with PT/OT if needed - She may call the office or return for any acute needs. - Will continue to follow OR cultures for any difference in sensitivity results. (2) Substance abuse Is this a current diagnosis for this admission?: Yes (3) Chest pain Qualifiers: Chest pain type: other chest pain Qualified Code(s): R07.89 - Other chest pain; R07.8 - Other chest pain Is this a current diagnosis for this admission?: Yes - Time Time Spent with patient: Less than 15 minutes
[2019-06-29] MEDS ORDERED: AMOXICILLIN TRIHYDRATE 500 MG CAPSULE PO SCH (10:00)
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
== END 2019-06-29 08:55 | disposition home or self-care (01) | DRG 581 ==
LOC: ER 11:42 → EH 13:24 → 5 16:00
PROVIDERS: ADMIT Orthopaedic Surgery; ATTEND Orthopaedic Surgery
PROC: 0HDGXZZ Extraction of Left Hand Skin, External Approach (ICD-10-PCS; 2019-06-26)
PROC: 0J9K0ZZ Drainage of Left Hand Subcutaneous Tissue and Fascia, Open Approach (ICD-10-PCS; principal; 2019-06-28 11:00)
DX: L02.512 Cutaneous abscess of left hand (principal); B95.0 Streptococcus, group A, as the cause of diseases classified elsewhere; F41.9 Anxiety disorder, unspecified; F19.10 Other psychoactive substance abuse, uncomplicated; F32.9 Major depressive disorder, single episode, unspecified; R07.89 Other chest pain; F17.200 Nicotine dependence, unspecified, uncomplicated; F12.10 Cannabis abuse, uncomplicated
CPT/HCPCS: 00400; 36415; 71045; 80048; 80053; 80202; 80307; 81001; 81025; 82565; 83605; 85025; 87040; 87070; 87075; 87077; 87205; 93005; 93010; 99285; J0131; J1100; J1885; J2001; J2250; J2405; J2543; J2704; J2765; J3010; J3370; J3490; J7030; J7050; J7060; S0028; S0119